=== PATIENT | male | born 1980 | race African-American/Black ===

== ENCOUNTER 2021-01-12 07:25 | Emergency (ER) | payer BC, OTHER ==
[2021-01-12 07:54] VITALS: BP 123/85; PULSE 63; TEMP 98; BMI 27.4
== END 2021-01-12 09:55 | disposition home or self-care (01) ==
LOC: JER 07:25 → JERFT 07:25
DX: Z48.02 Encounter for removal of sutures (principal)
CPT/HCPCS: 99281-25